=== PATIENT | male | born 1965 | race Two or more races ===

== ENCOUNTER 2016-02-19 02:10 | Emergency (ER) | payer MEDICAID ==
[~2016-02-19] VITALS: Ht 170.2 cm; Wt 90.7 kg
--- NOTE | 2016-02-19 02:26 | Emergency Room Report ---
History of Present Illness General Chief Complaint: Dizziness Source: Patient Present Illness HPI This is a 50-year-old male with no past medical history. He present with chief complaint of feeling dizzy and lightheaded. Onset for 3 days. No cough congestion been no fever or chills. This is a well. No other complaint. There are this problem before. No slurred speech. Allergies: Coded Allergies: No Known Allergies (Unverified , 02/19/16) Patient History Past Medical History: none Past Surgical History: none Pertinent Family History: none Social History: Denies: smoking Immunizations: other Reviewed Nursing Documentation: PMH: Agreed, PSxH: Agreed Nursing Documentation-PMH Past Medical History: No Stated History Review of Systems Constitutional: Reports: malaise Eye: Denies: blurred vision, eye pain ENT: Denies: ear pain, nose congestion, throat swelling Respiratory: Denies: cough, shortness of breath Cardiovascular: Denies: chest pain, palpitations Gastrointestinal: Denies: abdominal pain, diarrhea, nausea, vomiting Musculoskeletal: Denies: back pain, joint pain Skin: Denies: rash Neurological: Reports: dizziness, headache, Denies: numbness Endocrine: Denies: increased thirst, increased urine Hematologic/Lymphatic: Denies: easy bruising All Other Systems: negative except mentioned in HPI Physical Exam Vital Signs Date Time Temp Pulse Resp B/P Pulse Ox O2 Delivery O2 Flow Rate FiO2 02/19/16 02:16 98.2 86 16 160/98 96 Room Air vitals showed hypertension Sp02 EP Interpretation: reviewed, normal General Appearance: well appearing, no apparent distress, alert Head: normocephalic, atraumatic Eyes: bilateral eye EOMI, bilateral eye PERRL ENT: hearing grossly normal, normal pharynx Neck: full range of motion, supple, no meningismus Respiratory: chest non-tender, lungs clear, normal breath sounds Cardiovascular #1: regular rate, rhythm, no murmur Gastrointestinal: normal bowel sounds, non tender, no mass, no organomegaly, no bruit, non-distended Musculoskeletal: back normal, gait/station normal, normal range of motion Psychiatric: mood/affect normal Skin: warm/dry Medical Decision Making Diagnostic Impression: Primary Impression: Dizziness Additional Impressions: Diabetes type 2, uncontrolled Qualified Codes: E11.65 - Type 2 diabetes mellitus with hyperglycemia Obesity (BMI 30.0-34.9) Headache Qualified Codes: G44.209 - Tension-type headache, unspecified, not intractable Neurocysticercosis ER Course Patient presents with dizziness and headache. CT scan unremarkable other than neurocysticercosis. He has new-onset diabetes. We'll go ahead and treat. No evidence of DKA. No evidence of meningitis. Lab Results Impression labs with hyperglycemia CT/MRI/US Diagnostic Results CT/MRI/US Diagnostic Results : Imaging Test Ordered: CT head Impression neurocysticercosis per radiologist. No acute finding. Last Vital Signs Date Time Temp Pulse Resp B/P Pulse Ox O2 Delivery O2 Flow Rate FiO2 02/19/16 02:16 98.2 86 16 160/98 96 Room Air Status: improved Disposition: HOME, SELF-CARE Condition: Stable Scripts Metformin Hcl* (METFORMIN HCL*) 500 Mg Tablet 500 MG ORAL TWICE A DAY, #60 TAB Prov: ALONZO FELICIANO M.D. 02/19/16 Additional Instructions: Followup with family doctor in 7 days. Return if symptom worsen. ALONZO FELICIANO M.D. Feb 19, 2016 02:25
[2016-02-19] MEDS ORDERED: Ketorolac 30mg Inj IV ONE (02:30)
[2016-02-19 02:48] VITALS: BP 161/87
[2016-02-19 03:03] LABS: BASOPHILS % (AUTO) 1.1 % (0.0-2.0); LYMPHOCYTES % (AUTO) 34.1 % (20.0-45.0); MEAN CORPUSCULAR HEMOGLOBIN 27.9 PG (27.0-31.0); MEAN CORPUSCULAR HGB CONC 32.9 G/DL (32.0-36.0); MEAN CORPUSCULAR VOLUME 85 FL (80-99); MEAN PLATELET VOLUME 9.8 FL (6.5-10.1); MONOCYTES % (AUTO) 7.4 % (1.0-10.0); NEUTROPHILS % (AUTO) 56.3 % (45.0-75.0); PLATELET COUNT 190 K/UL (150-450); RED BLOOD COUNT 6.33 M/UL (4.70-6.10); RED CELL DISTRIBUTION WIDTH 11.7 % (11.6-14.8); WHITE BLOOD COUNT 11.4 K/UL (4.8-10.8)
[2016-02-19 03:03] LABS: APPEARANCE,URINE CLEAR; KETONES,URINE NEGATIVE (NEGATIVE); LEUKOCYTE ESTERASE ,URINE NEGATIVE (NEGATIVE); NITRITE,URINE NEGATIVE (NEGATIVE); PH,URINE 6 (4.5-8.0); PROTEIN,URINE NEGATIVE (NEGATIVE); UROBILINOGEN,URINE NORMAL MG/DL (0.0-1.0)
[2016-02-19 03:16] LABS: BACTERIA,URINE FEW /HPF; RBC,URINE 0-2 /HPF (0 - 0); SQUAMOUS EPITHELIAL CELL,UR FEW /LPF (NONE/OCC); WBC,URINE 0-2 /HPF (0 - 0)
[2016-02-19 03:21] LABS: ANION GAP 15 (5-15); CALCIUM 9.4 mg/dL (8.6-10.2); CARBON DIOXIDE 25 mEQ/L (20-30); CHLORIDE 96 mEQ/L (98-107); CREATININE 0.8 mg/dL (0.7-1.2); GLOMERULAR FILTRATION RATE > 60 mL/min (>60); HEMOLYSIS 6; POTASSIUM 4.2 mEQ/L (3.4-4.9); SODIUM 136 mEQ/L (135-145)
[2016-02-19] MEDS ORDERED: METFORMIN HCL500 M1 ORAL (03:41)
[2016-02-19 03:46] VITALS: BP 127/69
[2016-02-19 03:54] VITALS: BP 127/69
--- NOTE | 2016-02-25 10:29 | Diagnostic Imaging Report ---
Indications: Dizziness Technique: Spiral acquisitions obtained through the brain. Angled axial and coronal 5 x 5 mm slices were reconstructed. Total dose length product 1453 mGycm. CTDI vol(s) 7 mGy Comparison: None Findings: Small calcifications are seen scattered throughout the cerebral parenchyma, predominantly at the ontiveros-white junction. No acute hemorrhage or edema. No mass effect or midline shift. Normal ontiveros-white differentiation. Normal size ventricles and extra-axial CSF spaces. The calvarium is intact. The sinuses are clear. 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 The CT scanner at [facility] is accredited by the [employer] and the scans are performed using protocols designed to limit radiation exposure to as low as reasonably achievable to attain images of sufficient resolution adequate for diagnostic evaluation.
== END 2016-02-19 03:55 | disposition home or self-care (01) ==
LOC: EMR 02:31
DX: R42 Dizziness and giddiness (principal); E11.65 Type 2 diabetes mellitus with hyperglycemia; E66.9 Obesity, unspecified; Z68.30 Body mass index [BMI] 30.0-30.9, adult; R51 Headache; G44.209 Tension-type headache, unspecified, not intractable; B69.0 Cysticercosis of central nervous system
CPT/HCPCS: 36415; 70450; 80048; 81001; 82962; 85025; 96361; 96374; 99284; J1885

== ENCOUNTER 2016-05-27 05:25 | Emergency (ER) | payer MEDICAID ==
[~2016-05-27] VITALS: Ht 165.1 cm; Wt 95.3 kg
[~2016-05-27 05:25] MED LIST: METFORMIN HCL500 M1 ORAL
[2016-05-27] MEDS ORDERED: AMITRIPTYLINE25 MG ORAL (05:56)
--- NOTE | 2016-05-27 05:57 | Emergency Room Report ---
History of Present Illness General Chief Complaint: Dizziness Source: Patient Present Illness HPI Is a 50-year-old male with a history of diabetes. He's been complaining of weaning him pulsating sensation in his mostly left ears for many months. Denies any fever chills denies any nausea vomiting. Worse at night when he go to sleep. He woke up this morning and had numbness down his right leg. He was concerned. This lasted about 5 minutes and now normal. He walked in without a problem. Allergies: Coded Allergies: No Known Allergies (Unverified , 02/19/16) Patient History Past Medical History: see triage record, old chart reviewed, DM Past Surgical History: none Pertinent Family History: none Social History: Denies: smoking Immunizations: other Reviewed Nursing Documentation: PMH: Agreed, PSxH: Agreed Nursing Documentation-PMH Hx Diabetes: Yes Review of Systems Eye: Denies: blurred vision, eye pain ENT: Denies: ear pain, nose congestion, throat swelling Respiratory: Denies: cough, shortness of breath Cardiovascular: Denies: chest pain, palpitations Gastrointestinal: Denies: abdominal pain, diarrhea, nausea, vomiting Musculoskeletal: Denies: back pain, joint pain Skin: Denies: rash Neurological: Denies: headache, numbness Endocrine: Denies: increased thirst, increased urine Hematologic/Lymphatic: Denies: easy bruising All Other Systems: negative except mentioned in HPI Physical Exam Vital Signs Date Time Temp Pulse Resp B/P Pulse Ox O2 Delivery O2 Flow Rate FiO2 05/27/16 05:29 97.7 75 16 146/94 98 vitals normal Sp02 EP Interpretation: reviewed, normal General Appearance: well appearing, no apparent distress, alert Head: normocephalic, atraumatic Eyes: bilateral eye EOMI, bilateral eye PERRL ENT: hearing grossly normal, normal pharynx Neck: full range of motion, supple, no meningismus Respiratory: chest non-tender, lungs clear, normal breath sounds Cardiovascular #1: regular rate, rhythm, no murmur Gastrointestinal: normal bowel sounds, non tender, no mass, no organomegaly, no bruit, non-distended Musculoskeletal: back normal, gait/station normal, normal range of motion Psychiatric: mood/affect normal Skin: warm/dry Medical Decision Making Diagnostic Impression: Primary Impression: Tinnitus of both ears Additional Impression: Paresthesia of right lower extremity ER Course Patient presents with paresthesia of his right leg. No evidence CVA or TIA. I suspect any have I nerve compression. He is better now. CT negative. He complained of tinnitus. No obstructive process in her ear. We'll discharge home. 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 CT/MRI/US Diagnostic Results CT/MRI/US Diagnostic Results : Imaging Test Ordered: ct head Impression Read by radiologist. Neg. Last Vital Signs Date Time Temp Pulse Resp B/P Pulse Ox O2 Delivery O2 Flow Rate FiO2 05/27/16 05:29 97.7 75 16 146/94 98 Status: improved Disposition: HOME, SELF-CARE Condition: Stable Scripts Amitriptyline HCl (ELAVIL*) 25 Mg Tablet 25 MG ORAL BEDTIME, #30 TAB Prov: ALONZO FELICIANO M.D. 05/27/16 Additional Instructions: followup with your DrShirley in 7 days. Return if symptom worsen. ALONZO FELICIANO M.D. May 27, 2016 05:57
[2016-05-27 06:06] VITALS: BP 146/94
--- NOTE | 2016-05-27 08:30 | Diagnostic Imaging Report ---
Indications: Altered mental status Technique: Continuous helical CT imaging of the brain was performed with automatic exposure control on a Siemens sensation [address] scanner. Axial and coronal images were reconstructed at 5 mm slice thickness and interval. CTDI volume(s): 70 mGy Total DLP: 1459 mGy-cm Findings: Comparison: 02/19/2016 Focal parenchymal calcifications in the right frontal and parietal lobes are unchanged.. No evidence of mass or hemorrhage, other attenuation abnormality, mass effect, midline shift, hydrocephalus or increased intracranial pressure. Bone window images are unremarkable. Visualized paranasal sinuses and mastoid air cells are clear. 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 Written preliminary report placed in PACS 05/27/[address] scanner at [facility] is accredited by the [employer] and the scans are performed using protocols designed to limit radiation exposure to as low as reasonably achievable to attain images of sufficient resolution adequate for diagnostic evaluation.
== END 2016-05-27 06:05 | disposition home or self-care (01) ==
LOC: EMR 05:50
DX: H93.A3 Pulsatile tinnitus, bilateral (principal); R20.2 Paresthesia of skin; E11.9 Type 2 diabetes mellitus without complications; R41.82 Altered mental status, unspecified; B69.0 Cysticercosis of central nervous system
CPT/HCPCS: 70450; 82962; 99284